=== PATIENT | male | born 1955 | race Caucasian/White ===

== ENCOUNTER 2021-04-27 11:57 | Outpatient (REF) | payer OTHER, MEDICAID, SELFPAY ==
[2021-04-27 21:39] LABS: Abs Immature Grans 0.03 10^3/uL (0.0-0.06); Absolute Basophil Count 0.03 10^3/uL (0.0-0.2); Absolute Eosinophil Count 0.05 10^3/uL (0.0-0.7); Absolute Monocyte Count 0.53 10^3/uL (0.1-0.8); Absolute Neutrophil Count 6.06 10^3/uL (1.2-6.7); Basophils % 0.4; Eosinophils % 0.6; HCT 47.2 % (40.0-50.0); HGB 15.6 g/dL (13.5-17.5); Immature Grans % 0.4; Lymphocytes % 19.3; MCH 30.4 pg (27.0-33.0); MCHC 33.1 % (32.0-36.0); MPV 10.9 fL (8.0-11.0); Monocytes % 6.4; Neutrophils % 72.9; Nucleated RBC 0 %; Platelet Count 215 10^3/uL (130-400); RBC 5.13 10^6/uL (4.36-5.78); RDW 13.2 % (11.8-14.1); RDW-SD 45.2 fL
[2021-04-27 21:59] LABS: ALT 32 U/L (16-63); AST 25 U/L (15-37); Albumin 3.9 g/dL (3.4-5.0); Alkaline Phosphatase 115 U/L (46-116); Anion Gap 5.8 mmol/L (3-11); BUN 23 mg/dL (7-18); Bilirubin, Total 0.6 mg/dL (0.2-1.0); CO2 31.2 mmol/L (21.0-32.0); CREATININE 1.2 mg/dL (0.70-1.30); Chloride 105 mmol/L (98-107); FREE T4 0.78 ng/dL (0.76-1.46); Glucose 81 mg/dL (74-106); Potassium 4.4 mmol/L (3.5-5.1); Sodium 142 mmol/L (136-145); TSH 7.13 uIU/mL (0.36-3.74); Total Protein 7.6 g/dL (6.4-8.2)
[2021-04-29 13:52] LABS: Lyme Ab w Rflx to Lyme Confirm Positive (Negative)
[2021-04-29 15:16] LABS: Lyme IgG Ab Positive (Negative); Lyme IgM Ab Negative (Negative)
[2021-04-29 20:24] LABS: Anaplasma phagocytophilum Negative (Negative); B. miyamotoi PCR Negative (Negative); Babesia divergens/MO-1 Negative (Negative); Babesia duncani Negative (Negative); Babesia microti Negative (Negative); Ehrlichia chaffeensis Negative (Negative); Ehrlichia ewingii/canis Negative (Negative); Ehrlichia muris eauclairensis Negative (Negative)
== END 2021-04-27 11:58 | disposition home or self-care (01) ==
LOC: NCHCN 11:57
PROVIDERS: PCP Internal Medicine; Visit Provider Internal Medicine
DX: R53.83 Other fatigue (principal); M25.50 Pain in unspecified joint; K59.00 Constipation, unspecified
CPT/HCPCS: 80053; 86617; 87798; 84439; 84443; 85025; 86618

== ENCOUNTER 2021-07-21 18:53 | Outpatient (REF) | payer OTHER, MEDICAID, SELFPAY ==
[2021-07-21 21:27] LABS: ESR 4 mm/hr (0-20)
[2021-07-21 21:42] LABS: TSH (W/Ref FT4) 3.45 uIU/mL (0.36-3.74)
[2021-07-23 12:11] LABS: Lyme Ab w Rflx to Lyme Confirm Positive (Negative)
[2021-07-23 14:13] LABS: Lyme IgG Ab Positive (Negative); Lyme IgM Ab Negative (Negative)
== END 2021-07-21 18:54 | disposition home or self-care (01) ==
LOC: NCHCN 18:53
PROVIDERS: PCP Internal Medicine; Visit Provider Internal Medicine
DX: E03.9 Hypothyroidism, unspecified (principal)
CPT/HCPCS: 85652; 86617; 84443; 86618

== ENCOUNTER 2022-03-09 10:41 | Emergency (ER) | payer OTHER, MEDICAID, SELFPAY ==
[2022-03-09 10:45] VITALS: BP 163/76; PULSE 83; RESP 18; TEMP 36.6; O2SAT 98
--- NOTE | 2022-03-09 11:00 | DI.RAD_ITS ---
Exam(s) XR HAND LT COMPLETE EXAM: XR HAND LT COMPLETE CLINICAL HISTORY: 1st mcp abscess and swelling. TECHNIQUE: 2D digital imaging was performed of the left hand. Three views were obtained. AP, later al and oblique views were obtained. COMPARISON: No exams were available for comparison FINDINGS: BONES: No acute fracture is present. No bony destructive lesion is seen. JOINTS: No dislocation present. Mild degenerative changes are seen in the hand and wrist. The findin gs are most marked at the articulation between the scaphoid and the quadrangular bones. SOFT TISSUE: Normal. IMPRESSION: Unremarkable examination. No radiographic evidence to suggest osteomyelitis. DATA REPOSITORY: RADIATION DOSE DELIVERED:
[2022-03-09 11:17] LABS: Abs Immature Grans 0.05 10^3/uL (0.0-0.06); Absolute Basophil Count 0.04 10^3/uL (0.0-0.2); Absolute Eosinophil Count 0.08 10^3/uL (0.0-0.7); Absolute Lymphocyte Count 1.32 10^3/uL (1.2-3.4); Absolute Monocyte Count 0.78 10^3/uL (0.1-0.8); Absolute Neutrophil Count 8.45 10^3/uL (1.2-6.7); Basophils % 0.4; Eosinophils % 0.7; HCT 45.1 % (40.0-50.0); HGB 15.1 g/dL (13.5-17.5); Immature Grans % 0.5; Lymphocytes % 12.3; MCH 31.6 pg (27.0-33.0); MCHC 33.5 % (32.0-36.0); MCV 94 fL (80-95); MPV 9.5 fL (8.0-11.0); Monocytes % 7.3; Neutrophils % 78.8; Platelet Count 205 10^3/uL (130-400); RBC 4.78 10^6/uL (4.36-5.78); RDW 13.1 % (11.8-14.1); RDW-SD 46.3 fL; WBC 10.72 10^3/uL (4.4-10.8)
[2022-03-09 12:00] LABS: ALT 24 U/L (16-63); AST 19 U/L (15-37); Albumin 3.9 g/dL (3.4-5.0); Alkaline Phosphatase 97 U/L (46-116); Anion Gap 5.1 mmol/L (3-11); BUN 19 mg/dL (7-18); Bilirubin, Total 0.6 mg/dL (0.2-1.0); C-Reactive Protein 0.65 mg/dL (0.0-0.3); CO2 30.9 mmol/L (21.0-32.0); CREATININE 1.2 mg/dL (0.70-1.30); Calcium 9.3 mg/dL (8.5-10.1); Chloride 105 mmol/L (98-107); Estimated GFR 66.28 (mL/min/1.73m2); Glucose 56 mg/dL (74-106); Potassium 4.5 mmol/L (3.5-5.1); Sodium 141 mmol/L (136-145); Total Protein 7.1 g/dL (6.4-8.2)
--- NOTE | 2022-03-09 13:01 | ED.GENADUL_ITS ---
Discharge Plan Disposition Patient Disposition: HOME Condition: Stable Discharge Details Clinical Impression: Abscess Primary Care Provider: Lucio García ED Provider: Sweta Tatum Home Meds and New Rx's Prescriptions: New doxycycline monohydrate 100 mg tablet 100 mg PO BID 10 Days Qty: 20 0RF Continued quetiapine [Seroquel] 100 mg Tablet 50 mg PO QHS ibuprofen 400 mg Tablet 400 mg PO Q6H Discharge Instructions Instructions: Abscess (ED) Additional Instructions: Take antibiotics as prescribed twice a day Yogurt daily while on antibiotics Elevate above your heart is much as you are able to and decrease use Recheck in 48 to 72 hours Should you have spreading redness, fever, worsening pain, please return to emergency department for reassessment Referrals: Lucio García MD [Primary Care Provider] - Medical Decision Making No evidence of septic joint Tolerated procedure without incident Given doxycycline for home Labs reassuring after review X-ray of left hand does not show evidence of acute abnormality per radiology interpretation and my review Recheck in 24 to 48 hours recommended and early return precautions reviewed Medical Records Medical records reviewed: Yes I reviewed the patient's medical records. Lab Data Lab results reviewed: Yes I reviewed the patient's lab results. HPI General Date/Time Provider Initiated Documentation: 03/09/22 10:57 . HPI Narrative: This 67-year-old male presents with report of left hand injury and abscess. States that he thinks a plastic material in it became inflamed. Now has swelling with cellulitis of the arm. Denies fever or chills. Pain Left hand. Otherwise reportedly healthy. Related Data Home Medications Medication Instructions Recorded Confirmed doxycycline monohydrate 100 mg 100 mg PO BID 10 days #20 tabs 03/09/22 tablet ibuprofen 400 mg tablet 400 mg PO Q6H 03/09/22 03/09/22 quetiapine 100 mg tablet (Seroquel) 50 mg PO QHS 03/09/22 03/09/22 Previous Rx's Medication Instructions Recorded doxycycline monohydrate 100 mg 100 mg PO BID 10 days #20 tabs 03/09/22 tablet Allergies Allergy/AdvReac Type Severity Reaction Status Date / Time No Known Allergies Allergy Unverified 03/09/22 10:52 General Stated Complaint: Cellulitis TERRELL: 3 Review of Systems All systems reviewed & are unremarkable except as noted in HPI and below PFSH All Active Problems (Updated 03/09/22 @ 13:03 by ZEE Cat) Abscess (Acute) Social History Smoking/Tobacco Use Status: Current every day Tobacco Type: cigarettes Smoking risk assessment performed?: Yes Alcohol Intake: current Alcohol Intake frequency: a few times a month Alcohol type: wine and hard liquor Drug use: Never Substance use type: does not use Do you feel safe at home: Yes Do you feel safe in your relationship?: Yes Exam Const General: cooperative, comfortable and no acute distress Neuro General: patient alert and patient oriented x3 Extrem Hand/finger images: 2 1. Abscess, range of motion intact, cap refill intact distally 2. Edema noted, lymphangitis up to ureteral axillary region Course Vital Signs Vital signs: Vital Signs Temperature 36.6 C 03/09/22 10:45 Pulse 83 03/09/22 10:45 Respiratory Rate 18 03/09/22 10:45 Blood Pressure 163/76 H 03/09/22 10:45 Pulse Oximetry 98 03/09/22 10:45 Temperature 36.6 C 03/09/22 10:45 Temperature Source Temporal Artery Scan 03/09/22 10:45 Pulse 83 03/09/22 10:45 Respiratory Rate 18 03/09/22 10:45 Respiratory Effort Non-Labored 03/09/22 10:50 Blood Pressure 163/76 H 03/09/22 10:45 Blood Pressure Position Sitting 03/09/22 10:45 Pulse Oximetry 98 03/09/22 10:45 Oxygen Delivery Method Room Air 03/09/22 10:45 Oxygen Flow Rate 0 03/09/22 10:45 Pain Level 8 03/09/22 10:45 Lab/Test Results Lab/Test Results: Laboratory Tests Range/Units 03/09/22 03/09/22 11:09 11:09 WBC (4.4-10.8) 10^3/uL 10.72 RBC (4.36-5.78) 10^6/uL 4.78 Hgb (13.5-17.5) g/dL 15.1 Hct (40.0-50.0) % 45.1 MCV (80-95) fL 94 MCH (27.0-33.0) pg 31.6 MCHC (32.0-36.0) % 33.5 RDW (11.8-14.1) % 13.1 Plt Count (130-400) 10^3/uL 205 MPV (8.0-11.0) fL 9.5 Immature Gran % 0.5 Neutrophils % 78.8 Lymphocytes % 12.3 Monocytes % 7.3 Eosinophils % 0.7 Basophils % 0.4 Nucleated RBC % (0.0-0.3) % 0.0 Absolute Neutrophils (1.2-6.7) 10^3/uL 8.45 H Absolute Lymphocytes (1.2-3.4) 10^3/uL 1.32 Absolute Monocytes (0.1-0.8) 10^3/uL 0.78 Absolute Eosinophils (0.0-0.7) 10^3/uL 0.08 Absolute Basophils (0.0-0.2) 10^3/uL 0.04 Sodium (136-145) mmol/L 141 Potassium (3.5-5.1) mmol/L 4.5 Chloride (98-107) mmol/L 105 Carbon Dioxide (21.0-32.0) mmol/L 30.9 Anion Gap (3-11) mmol/L 5.1 BUN (7-18) mg/dL 19 H Creatinine (0.70-1.30) mg/dL 1.2 Est GFR (CKD-EPI 2020) (mL/min/1.73m2) 66.28 Glucose (74-106) mg/dL 56 L Calcium (8.5-10.1) mg/dL 9.3 Total Bilirubin (0.2-1.0) mg/dL 0.6 AST (15-37) U/L 19 ALT (16-63) U/L 24 Alkaline Phosphatase (46-116) U/L 97 C-Reactive Protein (0.0-0.3) mg/dL 0.65 H Total Protein (6.4-8.2) g/dL 7.1 Albumin (3.4-5.0) g/dL 3.9 Procedures Abscess I/D Site: Hand Side (if applicable): Left Local Anesthetic: Lidocaine 1% Amount of anesthesia used (mL): 5 Technique: Incised with #11 Blade Amount of fluid expressed (mL): 2 Packing used?: None Complications: Pain PAWSS Have you Been Recently Intoxicated or Drunk Within the Last 30 days?: No Have you Ever Experienced Previous Episodes of Alcohol Withdrawal?: No Have you ever Experienced Withdrawal Seizures?: No Have you ever Experienced Delirium Tremens(DT)s?: No Have you ever undergone Alcohol Rehabilitation Treatment (i.e, inpt ot out patient treatment programs)?: No Have you ever Experienced Blackouts?: No Have you ever Combined Alcohol with other Downers within the last 90 days?: No Have you ever Combined Alcohol with any other Substance of Abuse during the last 90 days?: No Positive Blood Alcohol level on Presentation? [PCS.BAL]: No Evidence of Increased Autonomic Activity (i.e. HR>120, tremor, sweating, agitation, nausea)?: No Result: 0
== END 2022-03-09 13:09 | disposition home or self-care (01) ==
PROVIDERS: Emergency Provider Physician Assistant; PCP Internal Medicine
DX: L02.512 Cutaneous abscess of left hand (principal)
CPT/HCPCS: 10060; 80053; 96365; 99284; 73130; 85025; 86140; 99282; J0690

== ENCOUNTER 2022-11-10 13:41 | Emergency (ER) | payer OTHER, MEDICAID, SELFPAY ==
[2022-11-10 13:47] VITALS: BP 130/77; PULSE 84; RESP 18; TEMP 37.4; O2SAT 98
--- NOTE | 2022-11-10 13:53 | ED.GENADUL_ITS ---
Discharge Plan Disposition Patient Disposition: Home Discharge Details Clinical Impression: Tick bite of chest wall Primary Care Provider: Lucio García ED Provider: Sarah Carroll Home Meds and New Rx's Prescriptions: No Action quetiapine [Seroquel] 100 mg Tablet 50 mg PO QHS ibuprofen 400 mg Tablet 400 mg PO Q6H Discharge Instructions Instructions: Tick Bite (ED) Additional Instructions: You may have repeat blood work in 4 to 6 weeks to check for possible me disease. In the meantime, monitor closely for signs of localized infection due to the tick bite. Referrals: Lucio García MD [Primary Care Provider] - (4-6 weeks) Discharge Data Discharge Physician: Sarah Carroll Medical Decision Making 67-year-old male presents for evaluation of tick bite. Patient has already removed the tick which he believes was there for at least 2 days. He is given a prophylactic dose of doxycycline. He is requesting that his baseline tick panel be drawn today. Given his recent exposure and prior exposure I do feel that this is reasonable. Patient understands to monitor closely for signs of localized infection from this tick bite. He will follow-up with primary care and understands that he can have repeat Lyme testing in 4 to 6 weeks. HPI General Date/Time Provider Initiated Documentation: 11/10/22 13:45 . HPI Narrative: 67-year-old male presents for evaluation of tick bite. Patient states that he removed a tick from his left chest wall today. He believes that it was there for 2 days. He is concerned because he developed Lyme disease in 2019. He did take doxycycline at that time. There is currently no signs of any localized reaction other than a small scab in the area. Related Data Home Medications Medication Instructions Recorded Confirmed ibuprofen 400 mg tablet 400 mg PO Q6H 03/09/22 11/10/22 quetiapine 100 mg tablet (Seroquel) 50 mg PO QHS 03/09/22 11/10/22 Allergies Allergy/AdvReac Type Severity Reaction Status Date / Time No Known Allergies Allergy Unverified 03/09/22 10:52 General Stated Complaint: InsectBite TERRELL: 4 Review of Systems Constitutional Comments: No fevers or chills. Integumentary/Breasts Comments: Small scab to left chest wall in mid axilla around nipple line PFSH All Active Problems (Updated 11/10/22 @ 13:53 by Sarah Carroll MD) Tick bite of chest wall (Acute) Social History Smoking/Tobacco Use Status: Current every day Tobacco Type: cigarettes Smoking risk assessment performed?: Yes Alcohol Intake: current Alcohol Intake frequency: a few times a month Alcohol type: wine and hard liquor Drug use: Never Substance use type: does not use Do you feel safe at home: Yes Do you feel safe in your relationship?: Yes Exam Narrative Exam Narrative: General: non-toxic, no respiratory distress, comfortable HEENT: normocephalic, atraumatic, lids and lashes normal, PERRL, EOMI, anicteric sclera, no conjunctival injection, moist oral mucosa Musculoskeletal: full range of motion of arms and legs, no tenderness to palpation. no clubbing, cyanosis, or edema Neurologic: appropriate for age, strength normal Psych: alert and oriented Skin: Small scabbed lesion to mid axillary left chest wall around the nipple line, otherwise no petechiae, no lesions, warm and dry Course Vital Signs Vital signs: Vital Signs Temperature 37.4 C 11/10/22 13:47 Pulse 84 11/10/22 13:47 Respiratory Rate 18 11/10/22 13:47 Blood Pressure 130/77 11/10/22 13:47 Pulse Oximetry 98 11/10/22 13:47 Temperature 37.4 C 11/10/22 13:47 Temperature Source Oral 11/10/22 13:47 Pulse 84 11/10/22 13:47 Respiratory Rate 18 11/10/22 13:47 Respiratory Effort Normal, Non-Labored 11/10/22 13:50 Blood Pressure 130/77 11/10/22 13:47 Blood Pressure Position Sitting 11/10/22 13:47 Pulse Oximetry 98 11/10/22 13:47 Oxygen Delivery Method Room Air 11/10/22 13:47 Oxygen Flow Rate 0 11/10/22 13:47
[2022-11-10] MEDS: Doxycycline Hyclate 100 MG CAP 200 MG PO (14:08)
[2022-11-13 19:21] LABS: Anaplasma phagocytophilum Negative (Negative); B. miyamotoi PCR Negative (Negative); Babesia divergens/MO-1 Negative (Negative); Babesia duncani Negative (Negative); Babesia microti Negative (Negative); Ehrlichia chaffeensis Negative (Negative); Ehrlichia ewingii/canis Negative (Negative); Ehrlichia muris eauclairensis Negative (Negative)
== END 2022-11-10 14:08 | disposition home or self-care (01) ==
PROVIDERS: Emergency Provider Emergency Medicine Emergency Medical Services; PCP Internal Medicine
DX: S20.369A Insect bite (nonvenomous) of unspecified front wall of thorax, initial encounter (principal); W57.XXXA Bitten or stung by nonvenomous insect and other nonvenomous arthropods, initial encounter
CPT/HCPCS: 87798; 99283; 86618; 99284

== ENCOUNTER 2022-11-22 14:38 | Outpatient (REF) | payer OTHER, MEDICAID, SELFPAY ==
[2022-11-22 15:02] LABS: Abs Immature Grans 0.03 10^3/uL (0.0-0.06); Absolute Basophil Count 0.04 10^3/uL (0.0-0.2); Absolute Eosinophil Count 0.06 10^3/uL (0.0-0.7); Absolute Lymphocyte Count 1.48 10^3/uL (1.2-3.4); Absolute Monocyte Count 0.44 10^3/uL (0.1-0.8); Basophils % 0.7; HCT 43.5 % (40.0-50.0); HGB 14.9 g/dL (13.5-17.5); Immature Grans % 0.5; Lymphocytes % 25.7; MCH 31.5 pg (27.0-33.0); MCHC 34.3 % (32.0-36.0); MCV 92 fL (80-95); MPV 10.4 fL (8.0-11.0); Monocytes % 7.7; Neutrophils % 64.4; Platelet Count 191 10^3/uL (130-400); RBC 4.73 10^6/uL (4.36-5.78); RDW 13.2 % (11.8-14.1); RDW-SD 44.7 fL; WBC 5.75 10^3/uL (4.4-10.8)
[2022-11-22 15:39] LABS: ALT 28 U/L (16-63); AST 28 U/L (15-37); Albumin 3.7 g/dL (3.4-5.0); Alkaline Phosphatase 97 U/L (46-116); BUN 19 mg/dL (7-18); Bilirubin, Total 0.6 mg/dL (0.2-1.0); CREATININE 1.2 mg/dL (0.70-1.30); Calcium 8.7 mg/dL (8.5-10.1); Calculated LDL 181 mg/dL (<100); Chloride 106 mmol/L (98-107); Cholesterol 269 mg/dL (<200); Estimated GFR 66.28 (mL/min/1.73m2); Glucose 95 mg/dL (74-106); HDL Cholesterol 73 mg/dL (40-60); Potassium 4.3 mmol/L (3.5-5.1); Sodium 142 mmol/L (136-145); TSH 12.16 uIU/mL (0.36-3.74); Total Protein 6.9 g/dL (6.4-8.2); Triglyceride 79 mg/dL (<150)
[2022-11-22 16:09] LABS: FREE T4 0.73 ng/dL (0.76-1.46)
== END 2022-11-22 14:39 | disposition home or self-care (01) ==
LOC: NCHCN 14:38
PROVIDERS: PCP Internal Medicine; Visit Provider Internal Medicine
DX: E78.5 Hyperlipidemia, unspecified (principal); K59.00 Constipation, unspecified; E03.9 Hypothyroidism, unspecified
CPT/HCPCS: 80053; 80061; 84439; 84443; 85025

== ENCOUNTER 2022-12-14 02:47 | Outpatient (CLI) | payer OTHER, MEDICAID, SELFPAY ==
--- NOTE | 2022-12-14 | DI.US_ITS ---
Exam(s) US ABDOMEN EXAM: US ABDOMENi CLINICAL HISTORY: ABD DISTENSION, R14.0, CONSTIPATION, K59.00 TECHNIQUE: Ultrasound of complete upper abdomen performed using standard protocol. COMPARISON: No exams were available for comparison FINDINGS: There is no ascites evident. LIVER: There are no hepatic lesions evident nor obvious dilatation of intrahepatic ducts. GALLBLADDER/BILIARY: There are no gallstones. No gallbladder wall edema nor pericholecystic fluid. The common hepatic duct isnot dilated, measuring 3mm at the level of richelle hepatis. PANCREAS: Not well seen due to overlying bowel gas SPLEEN: The spleen is not enlarged and there are no intrasplenic lesions evident. KIDNEYS:Right kidney unremarkable. There is a cyst in the left kidney measuring 1.2 x 0.8 cm. An ad ditional finding more medially in the left kidney measures 2.4 x 2.2 x 2 cm and appears partially meenu id partially cystic, somewhat difficult to evaluate and is immediately adjacent to bowel. ABDOMINAL AORTA: There is no evidence of abdominal aortic aneurysm. IVC: Normal diameter where visualized. IMPRESSION: 1. No evidence of cholelithiasis nor dilatation of the biliary tree. 2. Possible mass in the medial aspect left kidney measuring 2.4 x 2.2 x 2.0 cm, difficult to evaluat e because of the adjacent bowel loops. This is in addition to a separate smaller simple cyst in the inferomedial left kidney, this measuring 12 x 8 mm. Recommend follow-up CT scan. Opposite-right kid zachary appears unremarkable. 3. Less than optimal visualization of the pancreas due to overlying bowel gas. DATA REPOSITORY:
== END 2022-12-14 03:07 ==
LOC: DI 02:47
PROVIDERS: PCP Internal Medicine; Visit Provider Internal Medicine
DX: K59.00 Constipation, unspecified (principal); R14.0 Abdominal distension (gaseous)
CPT/HCPCS: 76700

== ENCOUNTER 2022-12-31 18:32 | Outpatient (REF) | payer OTHER, MEDICAID, SELFPAY ==
[2022-12-31 21:29] LABS: TSH (W/Ref FT4) 5.48 uIU/mL (0.36-3.74)
[2022-12-31 21:59] LABS: FREE T4 0.94 ng/dL (0.76-1.46)
== END 2022-12-31 18:33 | disposition home or self-care (01) ==
LOC: NCHCN 18:32
PROVIDERS: PCP Internal Medicine; Visit Provider Internal Medicine
DX: E03.9 Hypothyroidism, unspecified (principal)
CPT/HCPCS: 84439; 84443

== ENCOUNTER → 2023-01-18 01:52 | Outpatient (CLI) | payer OTHER, MEDICAID, SELFPAY ==
[2023-01-18] MEDS: Barium Sulfate 2% W/V-Creamy Vanilla Smoothie 450 ML BTL PO ×2 (09:30)
[2023-01-18] MEDS: Normal Saline Flush 10 ML SYR IJ (11:13)
[2023-01-18] MEDS: Normal Saline - Diluent 50 ML VIAL IJ (11:13)
[2023-01-18] MEDS: Omnipaque 350 MG/ML 500 ML BTL-Imaging package 100 ML IJ (11:24)
--- NOTE | 2023-01-18 11:35 | DI.CT_ITS ---
Exam(s) CT ABDOMEN PELVIS W EXAM: CT ABDOMEN PELVIS W CLINICAL HISTORY: RENAL CYST N28.1 CONSTIPATION K59.00 ABD DISTENTION R14.0 TECHNIQUE: Imaging Protocol: Axial computed tomography images with coronal and sagittal reformatted images were created and reviewed CONTRAST MATERIAL: Intravenous: Omnipaque 350 Contrast volume:100 mL Oral: Yes COMPARISON: US US ABDOMEN from 12/14/2022 FINDINGS: ABDOMEN: Lung Bases: There is a moderate size hiatal hernia. Liver: Normal density. No measurable mass. Portal, Superior Mesenteric, and Splenic Veins: Unremarkable. Gallbladder and Biliary Tract: No radiodense calculus or dilation. Pancreas: Normal density, no abnormal calcifications or inflammatory process. Spleen: Normal. Adrenals: No masses seen. Kidneys: Normal size, contour and axis. No radiodense stones or obstructive uropathy. There is a 1.2 x 0.9 cm simple cyst (Bosniak 1) in the left kidney. This corresponds to the cysts seen on the ultras ound. There is a tiny 2-3 mm left renal cortical hypodensity adjacent to the cyst. It is too small fo r further characterization. No follow-up is recommended. There is no solid mass within the kidney or adjacent to the kidney. Abdominal Aorta: Abdominal portion non-dilated. Atherosclerosis. Bowel: No obstruction or bowel wall thickening. Appendix is unremarkable. There is stool throughout t he colon suggesting constipation. Peritoneal Cavity: No ascites, collection or mesenteric inflammatory response. No free air. Lymph Nodes: Within normal limits. Bones: Within normal limits for the patient's age. Soft Tissues: Unremarkable. PELVIS: Bladder: Symmetric distention, no gross wall thickening. Reproductive Organs: Unremarkable as visualized. Lymph Nodes: Within normal limits. Bones: Within normal limits for the patient's age. IMPRESSION: 1. Simple left renal cyst. No follow-up is recommended. 2. No solid left renal mass. No mass seen in the pararenal soft tissues. 3. No acute abdominal or pelvic process. RADIATION DOSE DELIVERED: 685.47mGy.cm Total DLP DATA REPOSITORY: All CT scans at this facility are submitted to the National Radiology Data Registry (NRDR) Dose Index Registry (DIR) with the [employer] ([employer]). RADIATION OPTIMIZATION: All CT scans at this facility use at least one of these dose optimization te chniques: automated exposure control; mA and/or kV adjustment per patient size (includes targeted exa ms where dose is matched to clinical indication); or iterative reconstruction.
== END ==
PROVIDERS: PCP Internal Medicine; Visit Provider Internal Medicine
DX: N28.1 Cyst of kidney, acquired (principal)
CPT/HCPCS: 74177

== ENCOUNTER 2023-08-22 06:09 | Outpatient (CLI) | payer OTHER, MEDICAID, SELFPAY ==
[2023-08-22 12:45] LABS: Abs Immature Grans 0.03 10^3/uL (0.0-0.06); Absolute Basophil Count 0.06 10^3/uL (0.0-0.2); Absolute Eosinophil Count 0.07 10^3/uL (0.0-0.7); Absolute Monocyte Count 0.54 10^3/uL (0.1-0.8); Absolute Neutrophil Count 3.74 10^3/uL (1.2-6.7); Eosinophils % 1.1; HCT 47.8 % (40.0-50.0); HGB 16.1 g/dL (13.5-17.5); Immature Grans % 0.5; Lymphocytes % 27.7; MCHC 33.7 % (32.0-36.0); MCV 92 fL (80-95); MPV 10.1 fL (8.0-11.0); Monocytes % 8.8; Neutrophils % 60.9; Platelet Count 214 10^3/uL (130-400); RBC 5.19 10^6/uL (4.36-5.78); RDW 13.4 % (11.8-14.1); RDW-SD 45.7 fL; WBC 6.14 10^3/uL (4.4-10.8)
[2023-08-22 13:14] LABS: ALT 29 U/L (16-63); AST 26 U/L (15-37); Albumin 4.1 g/dL (3.4-5.0); Alkaline Phosphatase 86 U/L (46-116); Anion Gap 9.7 mmol/L (3-11); BUN 22 mg/dL (7-18); Bilirubin, Total 0.8 mg/dL (0.2-1.0); CO2 27.3 mmol/L (21.0-32.0); CREATININE 1.2 mg/dL (0.70-1.30); Calcium 9.4 mg/dL (8.5-10.1); Calculated LDL 215 mg/dL (<100); Chloride 105 mmol/L (98-107); Cholesterol 307 mg/dL (<200); Estimated GFR 65.87 (mL/min/1.73m2); Glucose 102 mg/dL (74-106); HDL Cholesterol 78 mg/dL (40-60); Potassium 5.1 mmol/L (3.5-5.1); Sodium 142 mmol/L (136-145); Total Protein 7.7 g/dL (6.4-8.2); Triglyceride 74 mg/dL (<150)
== END 2023-08-22 06:10 | disposition home or self-care (01) ==
PROVIDERS: PCP Internal Medicine; Visit Provider Family Medicine
DX: Z00.00 Encounter for general adult medical examination without abnormal findings (principal)
CPT/HCPCS: 36415; 80053; 80061; 84443; 85025

== ENCOUNTER 2023-09-26 13:15 | Outpatient (CLI) | payer OTHER, MEDICAID, SELFPAY ==
[2023-09-26 14:07] LABS: ALT 34 U/L (16-63); AST 23 U/L (15-37)
== END 2023-09-26 13:16 | disposition home or self-care (01) ==
LOC: LBO 13:15
PROVIDERS: PCP Internal Medicine; Visit Provider Family Medicine
DX: Z00.00 Encounter for general adult medical examination without abnormal findings (principal)
CPT/HCPCS: 36415; 84450; 84460

== ENCOUNTER 2024-06-21 03:53 | Outpatient (CLI) | payer MEDICARE, MEDICAID, SELFPAY ==
[2024-06-21 13:15] LABS: ALT 25 U/L (16-63); AST 29 U/L (15-37); Albumin 3.9 g/dL (3.4-5.0); Alkaline Phosphatase 85 U/L (46-116); BUN 22 mg/dL (7-18); Bilirubin, Total 0.95 mg/dL (0.2-1.0); CREATININE 1.3 mg/dL (0.70-1.30); Calcium 9.2 mg/dL (8.5-10.1); Calculated LDL 71 mg/dL (<100); Chloride 107 mmol/L (98-107); Cholesterol 158 mg/dL (<200); Estimated GFR 59.47 (mL/min/1.73m2); Glucose 95 mg/dL (74-106); HDL Cholesterol 76 mg/dL (40-60); Potassium 4.7 mmol/L (3.5-5.1); Sodium 142 mmol/L (136-145); TSH (W/Ref FT4) 14.05 uIU/mL (0.36-3.74); Total Protein 7.1 g/dL (6.4-8.2); Triglyceride 55 mg/dL (<150)
[2024-06-21 13:35] LABS: FREE T4 0.84 ng/dL (0.76-1.46)
== END 2024-06-21 03:54 | disposition home or self-care (01) ==
LOC: LOS 03:53
PROVIDERS: PCP Internal Medicine; Visit Provider Family Medicine
DX: E03.9 Hypothyroidism, unspecified (principal); F31.9 Bipolar disorder, unspecified; E78.5 Hyperlipidemia, unspecified
CPT/HCPCS: 36415; 80053; 80061; 84439; 84443

== ENCOUNTER → 2024-09-06 10:47 | Outpatient (BNVA) | payer MEDICARE, MEDICAID, SELFPAY | PROVIDERS: PCP Internal Medicine; Referring Provider Internal Medicine; Visit Provider Nurse Practitioner Gerontology | DX: N35.919 Unspecified urethral stricture, male, unspecified site (principal); R39.9 Unspecified symptoms and signs involving the genitourinary system | CPT/HCPCS: 51798; 99203; 99215 ==

== ENCOUNTER → 2024-09-20 10:53 | Outpatient (BNVA) | payer MEDICARE, MEDICAID, SELFPAY | PROVIDERS: PCP Internal Medicine; Referring Provider Internal Medicine; Visit Provider Nurse Practitioner Gerontology | DX: N35.919 Unspecified urethral stricture, male, unspecified site (principal) | CPT/HCPCS: 99213 ==

== ENCOUNTER 2024-09-25 12:28 | Outpatient (REF) | payer MEDICARE, MEDICAID, SELFPAY ==
[2024-09-25 15:32] LABS: TSH 1.38 uIU/mL (0.36-3.74)
== END 2024-09-25 12:29 | disposition home or self-care (01) ==
LOC: NCHCN 12:28
PROVIDERS: PCP Family Medicine; Visit Provider Family Medicine
DX: E03.9 Hypothyroidism, unspecified (principal)
CPT/HCPCS: 84443

== ENCOUNTER → 2024-11-21 07:40 | Outpatient (BNVA) | payer MEDICARE, MEDICAID, SELFPAY | PROVIDERS: PCP Family Medicine; Visit Provider Nurse Practitioner Gerontology | DX: N35.919 Unspecified urethral stricture, male, unspecified site (principal) | CPT/HCPCS: 99213 ==